=== PATIENT | male | born 1945 | race Asian ===

== ENCOUNTER 2016-11-05 15:07 | Outpatient (CLI) | payer MEDICARE, OTHER ==
--- NOTE | 2016-11-06 09:19 | XRAY Report ---
THREE-VIEW RIGHT KNEE: 11/05/2016 CLINICAL INDICATION: Medial stress to right knee, persistent pain. FINDINGS: AP, lateral, sunrise views of the right knee demonstrate no evidence of fracture or disloc ation. No effusion is present. The soft tissues appear unremarkable. IMPRESSION: NORMAL RIGHT KNEE. JOB #: [id number] EXT JOB #:[id number]
== END 2016-11-05 15:08 | disposition home or self-care (01) ==
LOC: DI.N 15:07
PROVIDERS: ATTEND Family Medicine
DX: S83.91XA Sprain of unspecified site of right knee, initial encounter (principal)

== ENCOUNTER 2016-11-14 09:22 | Outpatient (CLI) | payer MEDICARE, OTHER ==
--- NOTE | 2016-11-14 16:00 | MRI Report ---
EXAM: RIGHT KNEE MRI WITHOUT CONTRAST EXAM DATE: 11/14/2016 10:16 a.m. CLINICAL HISTORY: Right knee effusion, persistent pain despite conservative treatment. Medial joint l ine pain. COMPARISON: Knee x-ray 11/05/2016. TECHNIQUE: Multiplanar, multisequence T1-weighted and fluid-sensitive sequences of the knee without c ontrast. Other: None. FINDINGS: Bones: There is a low T1, low T2 signal line parallel to the subchondral bone of the medial tibial co ndyle. There is marked surrounding marrow edema. The findings are consistent with a nondisplaced frac ture. Articular Cartilage: There is moderate thinning of the hyaline cartilage of the medial compartment. T he lateral and patellofemoral cartilage appear unremarkable. Medial Meniscus: There is a full-thickness radial tear of the posterior root attachment medial extrus ion. Lateral Meniscus: The lateral meniscus is intact. Cruciate Ligaments: The anterior and posterior cruciate ligaments are intact. Collateral Ligaments: The medial collateral and lateral collateral ligamentous structures are intact. Tendons: The quadriceps, patellar, semimembranosus, and popliteus tendons are unremarkable. Musculature: No edema or fatty atrophy. Other: There is a moderate-sized joint effusion.. No popliteal cyst. No loose bodies. The medial and lateral retinacula are intact. The subcutaneous tissues and fat pads are unremarkable. IMPRESSION: 1. Acute subcortical fracture of the medial tibial condyle. This may be an insufficiency fracture. 2. Moderate right knee osteoarthritis. 3. Full-thickness radial tear of the medial meniscus with extrusion. [facility] MUSCULOSKELETAL RADIOLOGY SECTION Referring Provider Line: [phone] SITE ID: [id number]
== END 2016-11-14 09:23 | disposition home or self-care (01) ==
LOC: DI 09:22
PROVIDERS: ATTEND Family Medicine
DX: S82.131A Displaced fracture of medial condyle of right tibia, initial encounter for closed fracture (principal); S83.241A Other tear of medial meniscus, current injury, right knee, initial encounter; M17.11 Unilateral primary osteoarthritis, right knee

== ENCOUNTER 2023-01-27 13:46 | Outpatient (CLI) | payer MEDICARE, OTHER ==
--- NOTE | 2023-01-27 14:42 | XRAY Report ---
PROCEDURE: Chest 2 View X-Ray INDICATIONS: SHORTNESS OF BREATH TECHNIQUE: 2 views of the chest were acquired. COMPARISON: None. FINDINGS: Surgical changes and devices: None. Lungs and pleura: No pleural effusions or pneumothorax. Lungs are clear. Mediastinum: Mediastinal contours appear normal. Heart size is normal. Bones and chest wall: No suspicious bony lesions. Overlying soft tissues appear unremarkable. IMPRESSION: No acute cardiopulmonary process. Reviewed by: Adilene Arriaza MD on 01/27/2023 2:41 PM PDT Approved by: Adilene Arriaza MD on 01/27/2023 2:41 PM PDT Station ID: [id number]
== END 2023-01-27 13:47 | disposition home or self-care (01) ==
LOC: DI 13:46
PROVIDERS: ATTEND Physician Assistant
DX: R06.02 Shortness of breath (principal)